=== PATIENT | male | born 1945 | race Caucasian/White ===

== ENCOUNTER 2022-12-07 20:09 | Emergency (ER) | payer OTHER, MEDICARE ==
[~2022-12-07] VITALS: Ht 175.3 cm; Wt 95.5 kg
[2022-12-07 22:28] LABS: BASOPHILS % (AUTO) 0.8 % (0-1); EOSINOPHILS # (AUTO) 0.1 X10'3 (0-0.9); EOSINOPHILS % (AUTO) 2.2 % (0-6); HEMATOCRIT 40.3 % (42.0-52.0); HEMOGLOBIN 13.9 g/dl (14.0-17.9); LYMPHOCYTES # (AUTO) 1.6 X10'3 (1.1-4.8); LYMPHOCYTES % (AUTO) 24.8 % (21-51); MEAN CORPUSCULAR HEMOGLOBIN 31.4 PG (27.0-31.0); MEAN CORPUSCULAR HGB CONC 34.5 g/dL (33.0-36.5); MEAN CORPUSCULAR VOLUME 91.1 FL (78-98); MEAN PLATELET VOLUME 8.6 FL (7.4-10.4); MONOCYTES % (AUTO) 15.6 % (2-12); NEUTROPHILS # (AUTO) 3.6 X10'3 (1.8-7.7); NEUTROPHILS % (AUTO) 56.6 % (42-75); PLATELET COUNT 212 X10'3 (140-440); RED BLOOD COUNT 4.42 X10'6 (4.70-6.10); RED CELL DISTRIBUTION WIDTH 13.7 % (11.5-14.5); WHITE BLOOD COUNT 6.3 X10'3 (4.5-11.0)
[2022-12-07 22:30] LABS: ALANINE AMINOTRANSFERASE 36 U/L (12-78); ALBUMIN 3.8 G/DL (3.4-5.0); ALKALINE PHOSPHATASE 70 IU/L (46-116); ANION GAP 12 (8-16); ASPARTATE AMINO TRANSFERASE 25 U/L (10-37); BILIRUBIN,TOTAL 0.6 MG/DL (0.1-1.0); BLOOD UREA NITROGEN 19 MG/DL (7-18); BUN/CREATININE RATIO 20.2 (10.0-20.0); CALCIUM 8.8 MG/DL (8.5-10.1); CHLORIDE 105 MMOL/L (99-107); CREATININE 0.94 MG/DL (0.60-1.10); GLUCOSE 123 MG/DL (70-104); POTASSIUM 3.8 MMOL/L (3.5-5.1); SODIUM 143 MMOL/L (135-145); TOTAL CARBON DIOXIDE 26.2 MMOL/L (24-32); TOTAL PROTEIN 7.5 G/DL (6.4-8.2); eGFR 78 ML/MIN
[2022-12-07 22:38] LABS: MAGNESIUM 2.1 MG/DL (1.5-2.4)
[2022-12-08 02:27] LABS: CLARITY,URINE CLEAR (Clear); COLOR,URINE YELLOW (Yellow); GLUCOSE, URINE 100 mg/dl (Neg); KETONES,URINE NEGATIVE (Neg); LEUKOCYTE ESTERASE ,URINE NEGATIVE (Neg); NITRITES, URINE NEGATIVE (Neg); OCCULT BLOOD,URINE NEGATIVE (Neg); PH,URINE 5.5 (4.8-8.0); PROTEIN,URINE TRACE mg/dl (Neg); UROBILINOGEN,URINE 0.2 E.U/dL (0.2-1.0)
[2022-12-08 02:43] LABS: UA COLLECTION TYPE URINAL
[2022-12-08 02:52] LABS: BACTERIA,URINE NONE SEEN /HPF (Neg); MUCUS STRANDS MANY /LPF (Neg); RBC,URINE NONE SEEN /HPF (0-2); SQUAMOUS EPITHELIAL CELL,UR FEW /LPF (FEW); WBC,URINE 0-4 /HPF (0-4)
[2022-12-08 08:49] VITALS: BP 152/73
== END 2022-12-08 08:50 | disposition home or self-care (01) ==
LOC: ER 20:10
DX: R20.0 Anesthesia of skin (principal); M25.511 Pain in right shoulder; M25.551 Pain in right hip; E78.00 Pure hypercholesterolemia, unspecified; I10 Essential (primary) hypertension
CPT/HCPCS: 36415; 70450; 71045; 73030; 73502; 73552; 73590; 80053; 81001; 83735; 83880; 84484; 85025; 93005; 99285

== ENCOUNTER 2023-11-25 12:52 | Inpatient (IN) | payer OTHER, MEDICARE ==
[~2023-11-25] VITALS: Ht 170.2 cm; Wt 84.3 kg
[~2023-11-25 12:52] MED LIST: ACET-2006 PO; ASPI-611 PO; ATOR20TA66 PO; CHOL20004 PO
[2023-11-25] MEDS ORDERED: iohexol 350MG/ML 100ml bottle IV ONE (13:07)
[2023-11-25 13:28] LABS: ALBUMIN 3.5 G/DL (3.4-5.0); ANION GAP 8 (8-16); BLOOD UREA NITROGEN 22 MG/DL (7-18); BUN/CREATININE RATIO 19.1 (10.0-20.0); CALCIUM 8.7 MG/DL (8.5-10.1); CHLORIDE 108 MMOL/L (99-107); CREATININE 1.15 MG/DL (0.60-1.10); GLUCOSE 147 MG/DL (70-104); SODIUM 143 MMOL/L (135-145); TOTAL CARBON DIOXIDE 27.1 MMOL/L (24-32); eCRCL 51 ML/MIN; eGFR 62 ML/MIN
[2023-11-25 13:33] LABS: APTT 26 SECONDS (22-32); PROTHROMBIN TIME 10.5 SECONDS (9.0-12.0)
[2023-11-25 13:34] LABS: BASOPHILS % (AUTO) 0.7 % (0-1); EOSINOPHILS # (AUTO) 0.1 X10'3 (0-0.9); EOSINOPHILS % (AUTO) 1.5 % (0-6); HEMOGLOBIN 10.6 g/dl (14.0-17.9); LYMPHOCYTES # (AUTO) 1.1 X10'3 (1.1-4.8); LYMPHOCYTES % (AUTO) 21.7 % (21-51); MEAN CORPUSCULAR HEMOGLOBIN 27.4 PG (27.0-31.0); MEAN CORPUSCULAR HGB CONC 33.1 g/dL (33.0-36.5); MEAN CORPUSCULAR VOLUME 82.8 FL (78-98); MEAN PLATELET VOLUME 8.3 FL (7.4-10.4); MONOCYTES # (AUTO) 0.6 X10'3 (0-0.9); MONOCYTES % (AUTO) 11.5 % (2-12); NEUTROPHILS # (AUTO) 3.2 X10'3 (1.8-7.7); NEUTROPHILS % (AUTO) 64.6 % (42-75); PLATELET COUNT 236 X10'3 (140-440); RED BLOOD COUNT 3.86 X10'6 (4.70-6.10); RED CELL DISTRIBUTION WIDTH 14.3 % (11.5-14.5); WHITE BLOOD COUNT 4.9 X10'3 (4.5-11.0)
[2023-11-25] MEDS ORDERED: magnesium 2GM in 50ml NS 50 ML IV PRN (14:10)
[2023-11-25] MEDS ORDERED: magnesium hydroxide 30ml (MOM) UD suspension PO PRN (14:10)
[2023-11-25] MEDS: clopidogrel 75mg tablet PO SCH (14:10)
[2023-11-25] MEDS ORDERED: potassium Cl 20 mEq SR tablet PO PRN ×2 (14:10)
[2023-11-25] MEDS ORDERED: acetaminophen 325mg tablet PO PRN (14:10)
[2023-11-25] MEDS ORDERED: HYDROcodone/acetaminophen 5mg/325mg tablet PO PRN (14:10)
[2023-11-25] MEDS ORDERED: ondansetron/PF 4mg/2ml inj IV PRN (14:10)
[2023-11-25] MEDS ORDERED: mag hydrox/Alum hydrox/simeth 30ml oral suspension PO PRN (14:10)
[2023-11-25] MEDS ORDERED: morphine 2 MG/ML inj. syringe IV PRN (14:10)
[2023-11-25] MEDS ORDERED: potassium Cl 40MEQ/1/2NS 520ml 520 ML IV PRN (14:10)
[2023-11-25] MEDS ORDERED: magnesium 4gm in 100ml NS 100 ML IV PRN (14:10)
[2023-11-25] MEDS ORDERED: magnesium Cl slow-release 64mg tablet PO PRN (14:10)
[2023-11-25] MEDS: aspirin 81mg tab.chew PO ONE (14:14)
[2023-11-25] MEDS: clopidogrel 75mg tablet PO ONE (14:14)
[2023-11-25 19:31] VITALS: BP 185/83; PULSE 63; RESP 16; TEMP 98.6; O2SAT 98
[2023-11-25] MEDS: K and/or MAG REPLACEMENT MC SCH (20:00)
[2023-11-25] MEDS: docusate sod 100mg capsule PO SCH (20:00)
[2023-11-25] MEDS: hydrALAZINE 20mg/ml inj. IV ONE (21:45)
[2023-11-25] MEDS: HYDROcodone/acetaminophen 10/325mg tab PO PRN (21:45)
[2023-11-25 22:00] VITALS: BP 163/70; PULSE 66; RESP 16; TEMP 97.5; O2SAT 97
[2023-11-26 06:00] VITALS: BP 126/68; PULSE 72; RESP 14; TEMP 97.5; O2SAT 97
[2023-11-26 07:06] LABS: EOSINOPHILS # (AUTO) 0.1 X10'3 (0-0.9); EOSINOPHILS % (AUTO) 2.8 % (0-6); HEMATOCRIT 28.6 % (42.0-52.0); HEMOGLOBIN 9.7 g/dl (14.0-17.9); LYMPHOCYTES # (AUTO) 1.6 X10'3 (1.1-4.8); LYMPHOCYTES % (AUTO) 35.7 % (21-51); MEAN CORPUSCULAR HEMOGLOBIN 27.8 PG (27.0-31.0); MEAN CORPUSCULAR HGB CONC 33.7 g/dL (33.0-36.5); MEAN CORPUSCULAR VOLUME 82.5 FL (78-98); MEAN PLATELET VOLUME 8.3 FL (7.4-10.4); MONOCYTES # (AUTO) 0.6 X10'3 (0-0.9); MONOCYTES % (AUTO) 12.8 % (2-12); NEUTROPHILS # (AUTO) 2.2 X10'3 (1.8-7.7); NEUTROPHILS % (AUTO) 47.7 % (42-75); PLATELET COUNT 209 X10'3 (140-440); RED BLOOD COUNT 3.47 X10'6 (4.70-6.10); RED CELL DISTRIBUTION WIDTH 14.2 % (11.5-14.5); WHITE BLOOD COUNT 4.6 X10'3 (4.5-11.0)
[2023-11-26 07:41] LABS: % IRON SATURATION 9 % (11-46); IRON 26 UG/DL (53-167); TOTAL IRON BINDING CAPACITY 302 UG/DL (259-388)
[2023-11-26 07:59] LABS: ALANINE AMINOTRANSFERASE 16 U/L (12-78); ALKALINE PHOSPHATASE 56 IU/L (46-116); ANION GAP 8 (8-16); ASPARTATE AMINO TRANSFERASE 17 U/L (10-37); BILIRUBIN,TOTAL 0.6 MG/DL (0.1-1.0); BLOOD UREA NITROGEN 23 MG/DL (7-18); BUN/CREATININE RATIO 22.3 (10.0-20.0); CALCIUM 8.2 MG/DL (8.5-10.1); CHLORIDE 108 MMOL/L (99-107); CREATININE 1.03 MG/DL (0.60-1.10); FERRITIN 13 NG/ML (26-388); GLUCOSE 93 MG/DL (70-104); MAGNESIUM 1.7 MG/DL (1.5-2.4); POTASSIUM 3.8 MMOL/L (3.5-5.1); SODIUM 143 MMOL/L (135-145); TOTAL CARBON DIOXIDE 26.6 MMOL/L (24-32); eCRCL 57 ML/MIN; eGFR 70 ML/MIN
[2023-11-26 08:00] VITALS: RESP 16; O2SAT 96
[2023-11-26] MEDS: enoxaparin 40mg/0.4ml syringe SUBCUT SCH (08:00)
[2023-11-26] MEDS: aspirin 325mg tablet PO SCH (08:30)
[2023-11-26] MEDS: aspirin 81mg, enteric-coated 1 TAB TABLET.DR PO SCH (08:49)
[2023-11-26] MEDS: atorvastatin 20mg tablet PO SCH (08:50)
[2023-11-26 10:00] VITALS: BP 146/71; PULSE 74; RESP 16; TEMP 98; O2SAT 96
== END 2023-11-26 18:00 | disposition home health service (06) | DRG 948 ==
LOC: ER 12:52 → ED HOLD 14:14 → ORTHO 4S 19:20
PROVIDERS: ADMIT Internal Medicine; ATTEND Internal Medicine
DX: R53.1 Weakness (principal); I10 Essential (primary) hypertension; E11.9 Type 2 diabetes mellitus without complications; E78.00 Pure hypercholesterolemia, unspecified; Z79.82 Long term (current) use of aspirin; Z79.899 Other long term (current) drug therapy; I69.344 Monoplegia of lower limb following cerebral infarction affecting left non-dominant side
CPT/HCPCS: 36415; 70450; 70551; 71045; 80048; 80053; 82607; 82728; 82948; 83540; 83550; 83735; 85025; 85610; 85730; 86592; 87081; 93005; 93306; 93880; 97161; 97530; 97535; 99291; G0378; J0360; J3490; Q9967